=== PATIENT | male | born 1985 | race African-American/Black ===

== ENCOUNTER 2024-05-16 21:57 | Emergency (ER) | payer OTHER ==
[~2024-05-16] VITALS: Ht 193 cm; Wt 100.0 kg
[2024-05-16 22:42] VITALS: O2SAT 100
[2024-05-17] MEDS ORDERED: LIDO700A15 TP (00:14)
[2024-05-17] MEDS ORDERED: NAPR-1176 MT (00:14)
[2024-05-17] MEDS: KETOROLAC 15MG/ML VIAL IM ONE (00:18)
[2024-05-17 00:19] VITALS: BP 135/76; PULSE 77; RESP 20; TEMP 36.83628; O2SAT 100
== END 2024-05-17 00:32 | disposition home or self-care (01) ==
LOC: ER 21:57
DX: G89.29 Other chronic pain (principal); M54.9 Dorsalgia, unspecified
CPT/HCPCS: 99283; 96372; J1885